=== PATIENT | female | born 1985 | race Caucasian/White ===

== ENCOUNTER 2016-11-09 14:29 | Emergency (ER) | payer OTHER ==
[2016-11-09] MEDS ORDERED: ADACEL/BOOSTRIX VACCINE (DIPHTH/PERTUSS/ACELL/TETANUS)0.5ML SYR (90715) As Ordered ONE (15:47)
--- NOTE | 2016-11-09 16:19 | EDDOCDS ---
Nurse's Notes [facility] Name: Annette Allan Age: 31 yrs Sex: Female : 1985 Arrival Date: 11/09/2016 Time: 14:29 Bed I3 / M3 Private MD: No Pcp Diagnosis: Bitten by dog-Left Wrist Presentation: 11/09 14:31 Presenting complaint: Patient states: Pt presents with c/o dog bite to left wrist dls puncture wound occurred Wednesday pts own dog was seen at urgent care put on amoxicillin pt thinks redness and pain is worse. Adult Sepsis Screening: The patient does not have new or worsening altered mentation. Patient's respiratory rate is less than 22. Systolic blood pressure is greater than 100. Patient has a qSOFA score of 0- Negative Sepsis Screen. Suicide/Homicide risk assessment- the patient denies having any suicidal and/or homicidal ideations and does not present with any other emotional, behavioral or mental health complaints. 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 Transition of care: patient was not received from another setting of care. 14:31 Acuity: JACKLYN Level 5 dls 14:31 Method Of Arrival: Walkin/Carried/Asstd dls Triage Assessment: 14:35 General: Appears in no apparent distress, well nourished, well groomed, Behavior is dls cooperative. Pain: Pain currently is 6 out of 10 on a pain scale. HIV screening NA for this visit Offered previously. 16:17 Bite Description: Bite sustained to left arm by a dog, Animal Information: Vaccine kr3 status: is current. 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 27-0.8 mg Oral tab 1 tab once daily 2. Augmentin 875-125 mg Oral tab 1 tab every 12 hours - PMHx: none; - PSHx: ; - Immunization history:: Last tetanus immunization: unknown. - Family history: Not pertinent. - Social history: Smoking status: Patient uses tobacco products, light tobacco smoker. No barriers to communication noted, The patient speaks fluent Fijian. - : The pt / caregiver states he / she is not on anticoagulants. Home medication list is obtained from the patient. - Exposure Risk Screening:: None identified. Screenin:34 Screening information is obtained from the patient. Fall risk: No risks identified. kr3 Assistance ADL's: requires no assistance with activities of daily living. Abuse/DV Screen: The patient / caregiver reports he/she is: not in a situation that causes fear, pain or injury. Nutritional screening: No deficits noted. Advance Directives: Currently, there is no health care proxy. home support is adequate. Assessment: 15:33 Reassessment: Patient appears in no apparent distress at this time. Pain: Location: kr3 left forearm. Respiratory: Respiratory effort is even, unlabored. Derm: Skin healing wounds to left wrist, redness surrounding wounds which is extending up left forearm. Musculoskeletal: Range of motion intact in all extremities. 16:17 Reassessment: Patient appears in no apparent distress at this time. kr3 Vital Signs: 14:30 BP 116 / 71; Pulse 107; Resp 18 S; Temp 97.6(O); Pulse Ox 98% on R/A; Weight 104.33 kg dd6 (R); Height 5 ft. 3 in. (160.02 cm) (R); 14:30 Body Mass Index 40.74 (104.33 kg, 160.02 cm) dd6 Vitals: 14:30 Log In Time: November 09, 2016 at 14:28. dd6 ED Course: 14:30 Patient visited by Aquilino Desai PCA. dd6 14:30 No Pcp is Private Physician. dd6 14:30 Patient moved to Waiting dd6 14:31 Patient moved to Pre RCE dd6 14:34 Triage Initiated dls 15:12 Elva Barone PA-C is PHCP. ef1 15:12 Ernesto Riojas MD is Attending Physician. ef1 15:16 Patient moved to I3 / M3 ar3 15:19 Patient visited by Elva Barone PA-C. ef1 15:34 The patient / caregiver is instructed regarding the plan of care and ED course. Patient kr3 has correct armband on for positive identification. 15:42 Pt greeted and oriented to ED. Patient advised of names of staff involved in care, jam1 location of call sawyer, wait times and NPO status. Patient has correct armband on for positive identification. Bed in low position. Call light in reach. Side rails up X 1. Door closed. 15:46 Patient visited by Elva Barone PA-C. ef1 16:10 Milton Hayes MD is Referral Physician. ef1 16:12 [facility] Payment Agreement was scanned into [employer] and attached to record. zo 16:17 No IV's were initiated during this patient's visit. No procedures done that require kr3 assistance. 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 Exp: 11/26/2018. Lot #: [id number]. } Route: IM; Site: right deltoid; Order Results: There are currently no results for this order. Outcome: 16:10 Discharge ordered by Provider. ef1 16:17 Discharge Assessment: patient administered narcotics - no. The following High Risk kr3 Discharge criteria are identified: None. Discharged to home ambulatory. Condition: stable. Discharge instructions given to patient, Instructed on discharge instructions, follow up and referral plans. Demonstrated understanding of instructions, Pt was receptive of discharge instructions/ teaching. No special radiology studies were completed. Property sent home with patient. 16:18 Patient left the ED. kr3 Signatures: Lyly Solis, RN RN dls Kanchan Yang, RESTAURANT CREW RESTAURANT CREW jam1 Ade Riggs RN RN kr3 Shakir Rodriguez Daniell, RESTAURANT CREW RESTAURANT CREW dd6 Elva Barone PA-C PA-C ef1 Madelyn Carranza, RESTAURANT CREW RESTAURANT CREW ar3 MTDD
--- NOTE | 2016-11-09 16:19 | EDDOCDS ---
Physician Documentation [facility] Name: Annette Allan Age: 31 yrs Sex: Female : 1985 Arrival Date: 11/09/2016 Time: 14:29 Bed I3 / M3 Private MD: No Pcp Disposition: 11/09/16 16:10 Discharged to Home/Self Care. Impression: Bitten by dog - Left Wrist. - Condition is Stable. - Medication Reconciliation, Local Pharmacy Hours form. - Follow up: Emergency Department; When: Tomorrow; Reason: Recheck today's complaints, Continuance of care. Follow up: Milton Hayes; When: 1 - 2 days; Reason: Recheck today's complaints, Continuance of care. - Problem is new. - Symptoms have improved. Historical: - Allergies: SULFA (SULFONAMIDES) (Unknown); - Home Meds: 1. 27-0.8 mg Oral tab 1 tab once daily 2. Augmentin 875-125 mg Oral tab 1 tab every 12 hours - PMHx: none; - PSHx: ; - Immunization history:: Last tetanus immunization: unknown. - Family history: Not pertinent. - Social history: Smoking status: Patient uses tobacco products, light tobacco smoker. No barriers to communication noted, The patient speaks fluent Mongolian. - : The pt / caregiver states he / she is not on anticoagulants. Home medication list is obtained from the patient. - Exposure Risk Screening:: None identified. 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 3 in. (160.02 cm) (R); 14:30 Body Mass Index 40.74 (104.33 kg, 160.02 cm) dd6 MDM: 15:49 Tetanus- Diptheria-Acellular Pertussis 0.5 ml IM once; Routine booster 10-64yrs, >64 ef1 with child contact [place] [facility] ordered. 15:49 Misc. Nursing Order ordered. ef1 16:07 Financial registration complete. zo 16:12 [facility] Payment Agreement was scanned into [employer] and attached to record. 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 Exp: 11/26/2018. Lot #: [id number]. } Route: IM; Site: right deltoid; Signatures: Lyly Solis, RN RN dls Ade Riggs RN RN kr3 Shakir Rodriguez Erica, PA-C PA-C ef1 The chart was reviewed and I authenticate all verbal orders and agree with the evaluation and treatment provided.Attachments: 16:12 [facility] Payment Agreement zo MTDD
--- NOTE | 2016-11-11 17:18 | EDDOCDS ---
Physician Documentation [facility] Name: Annette Allan Age: 31 yrs Sex: Female : 1985 Arrival Date: 11/09/2016 Time: 14:29 Bed I3 / M3 Private MD: No Pcp Disposition: 11/09/16 16:10 Discharged to Home/Self Care. Impression: Bitten by dog - Left Wrist. - Condition is Stable. - Medication Reconciliation, Local Pharmacy Hours form. - Follow up: Emergency Department; When: Tomorrow; Reason: Recheck today's complaints, Continuance of care. Follow up: Milton Hayes; When: 1 - 2 days; Reason: Recheck today's complaints, Continuance of care. - Problem is new. - Symptoms have improved. Historical: - Allergies: SULFA (SULFONAMIDES) (Unknown); - Home Meds: 1. 27-0.8 mg Oral tab 1 tab once daily 2. Augmentin 875-125 mg Oral tab 1 tab every 12 hours - PMHx: none; - PSHx: ; - Immunization history:: Last tetanus immunization: unknown. - Family history: Not pertinent. - Social history: Smoking status: Patient uses tobacco products, light tobacco smoker. No barriers to communication noted, The patient speaks fluent [place]. - : The pt / caregiver states he / she is not on anticoagulants. Home medication list is obtained from the patient. - Exposure Risk Screening:: None identified. 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 3 in. (160.02 cm) (R); 16:15 BP 100 / 63; Pulse 86; Resp 24; Temp 97.8; Pulse Ox 99% ; jam1 14:30 Body Mass Index 40.74 (104.33 kg, 160.02 cm) dd6 MDM: 15:49 Tetanus- Diptheria-Acellular Pertussis 0.5 ml IM once; Routine booster 10-64yrs, >64 ef1 with child contact [place] [facility] ordered. 15:49 [facility] Nursing Order ordered. ef1 16:07 Financial registration complete. zo 16:12 [facility] Payment Agreement was scanned into [employer] and attached to record. zo 21:39 T-Sheet-- Draft Copy was scanned into [employer] and attached to record. klr Administered Medications: 15:51 Drug: Tetanus- Diptheria-Acellular Pertussis 0.5 ml [diphth,pertussis(acel),tetanus 2.5 kr3 Lf unit-8 mcg-5 Lf/0.5mL IM syringe (0.5 mL)] {Editor Map: [employer]. Exp: 11/26/2018. Lot #: [id number]. } Route: IM; Site: right deltoid; Signatures: Lyly Solis RN RN dls Ade Riggs RN RN kr3 Shakir Rodriguez Erica, JEROMYC PA-Chad ef1 Sima Liu The chart was reviewed and I authenticate all verbal orders and agree with the evaluation and treatment provided.Attachments: 16:12 [facility] Payment Agreement zo 21:39 T-Sheet-- Draft Copy klr Chart Complete MTDD
--- NOTE | 2016-11-11 17:18 | EDDOCDS ---
Nurse's Notes [facility] Name: Annette Allan Age: 31 yrs Sex: Female : 1985 Arrival Date: 11/09/2016 Time: 14:29 Bed I3 / M3 Private MD: No Pcp Diagnosis: Bitten by dog-Left Wrist Presentation: 11/09 14:31 Presenting complaint: Patient states: Pt presents with c/o dog bite to left wrist dls puncture wound occurred Wednesday pts own dog was seen at urgent care put on amoxicillin pt thinks redness and pain is worse. Adult Sepsis Screening: The patient does not have new or worsening altered mentation. Patient's respiratory rate is less than 22. Systolic blood pressure is greater than 100. Patient has a qSOFA score of 0- Negative Sepsis Screen. Suicide/Homicide risk assessment- the patient denies having any suicidal and/or homicidal ideations and does not present with any other emotional, behavioral or mental health complaints. 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 Transition of care: patient was not received from another setting of care. 14:31 Acuity: JACKLYN Level 5 dls 14:31 Method Of Arrival: Walkin/Carried/Asstd dls Triage Assessment: 14:35 General: Appears in no apparent distress, well nourished, well groomed, Behavior is dls cooperative. Pain: Pain currently is 6 out of 10 on a pain scale. HIV screening NA for this visit Offered previously. 16:17 Bite Description: Bite sustained to left arm by a dog, Animal Information: Vaccine kr3 status: is current. 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 27-0.8 mg Oral tab 1 tab once daily 2. Augmentin 875-125 mg Oral tab 1 tab every 12 hours - PMHx: none; - PSHx: ; - Immunization history:: Last tetanus immunization: unknown. - Family history: Not pertinent. - Social history: Smoking status: Patient uses tobacco products, light tobacco smoker. No barriers to communication noted, The patient speaks fluent Bermudian. - : The pt / caregiver states he / she is not on anticoagulants. Home medication list is obtained from the patient. - Exposure Risk Screening:: None identified. Screenin:34 Screening information is obtained from the patient. Fall risk: No risks identified. kr3 Assistance ADL's: requires no assistance with activities of daily living. Abuse/DV Screen: The patient / caregiver reports he/she is: not in a situation that causes fear, pain or injury. Nutritional screening: No deficits noted. Advance Directives: Currently, there is no health care proxy. home support is adequate. Assessment: 15:33 Reassessment: Patient appears in no apparent distress at this time. Pain: Location: kr3 left forearm. Respiratory: Respiratory effort is even, unlabored. Derm: Skin healing wounds to left wrist, redness surrounding wounds which is extending up left forearm. Musculoskeletal: Range of motion intact in all extremities. 16:17 Reassessment: Patient appears in no apparent distress at this time. kr3 Vital Signs: 14:30 BP 116 / 71; Pulse 107; Resp 18 S; Temp 97.6(O); Pulse Ox 98% on R/A; Weight 104.33 kg dd6 (R); Height 5 ft. 3 in. (160.02 cm) (R); 16:15 BP 100 / 63; Pulse 86; Resp 24; Temp 97.8; Pulse Ox 99% ; jam1 14:30 Body Mass Index 40.74 (104.33 kg, 160.02 cm) dd6 Vitals: 14:30 Log In Time: November 09, 2016 at 14:28. dd6 ED Course: 14:30 Patient visited by Aquilino Desai PCA. dd6 14:30 No Pcp is Private Physician. dd6 14:30 Patient moved to Waiting dd6 14:31 Patient moved to Pre RCE dd6 14:34 Triage Initiated dls 15:12 Elva Barone PA-C is PHCP. ef1 15:12 Ernesto Riojas MD is Attending Physician. ef1 15:16 Patient moved to I3 / M3 ar3 15:19 Patient visited by Elva Barone PA-C. ef1 15:34 The patient / caregiver is instructed regarding the plan of care and ED course. Patient kr3 has correct armband on for positive identification. 15:42 Pt greeted and oriented to ED. Patient advised of names of staff involved in care, jam1 location of call sawyer, wait times and NPO status. Patient has correct armband on for positive identification. Bed in low position. Call light in reach. Side rails up X 1. Door closed. 15:46 Patient visited by Elva Barone PA-C. ef1 16:10 Milton Hayes MD is Referral Physician. ef1 16:12 [facility] Payment Agreement was scanned into [email or web address] and attached to record. zo 16:17 No IV's were initiated during this patient's visit. No procedures done that require kr3 assistance. 21:39 T-Sheet-- Draft Copy was scanned into [employer] and attached to record. 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 Exp: 11/26/2018. Lot #: [id number]. } Route: IM; Site: right deltoid; Order Results: There are currently no results for this order. Outcome: 16:10 Discharge ordered by Provider. ef1 16:17 Discharge Assessment: patient administered narcotics - no. The following High Risk kr3 Discharge criteria are identified: None. Discharged to home ambulatory. Condition: stable. Discharge instructions given to patient, Instructed on discharge instructions, follow up and referral plans. Demonstrated understanding of instructions, Pt was receptive of discharge instructions/ teaching. No special radiology studies were completed. Property sent home with patient. 16:18 Patient left the ED. kr3 Signatures: Lyly Solis, RN RN Kanchan Parra, MOLDER FOAM RUBBER MOLDER FOAM RUBBER jam1 Ade Riggs RN RN kr3 Shakir Rodriguez Daniell, MOLDER FOAM RUBBER MOLDER FOAM RUBBER dd6 Elva Barone PA-C PA-C ef1 Madelyn Carranza, MOLDER FOAM RUBBER MOLDER FOAM RUBBER ar3 Sima Liu klr Chart Complete MTDD
--- NOTE | 2016-11-11 17:18 | EDDOCDS ---
Physician Documentation [facility] Name: Annette Allan Age: 31 yrs Sex: Female : 1985 Arrival Date: 11/09/2016 Time: 14:29 Bed I3 / M3 Private MD: No Pcp Disposition: 11/09/16 16:10 Discharged to Home/Self Care. Impression: Bitten by dog - Left Wrist. - Condition is Stable. - Medication Reconciliation, Local Pharmacy Hours form. - Follow up: Emergency Department; When: Tomorrow; Reason: Recheck today's complaints, Continuance of care. Follow up: Milton Hayes; When: 1 - 2 days; Reason: Recheck today's complaints, Continuance of care. - Problem is new. - Symptoms have improved. Historical: - Allergies: SULFA (SULFONAMIDES) (Unknown); - Home Meds: 1. 27-0.8 mg Oral tab 1 tab once daily 2. Augmentin 875-125 mg Oral tab 1 tab every 12 hours - PMHx: none; - PSHx: ; - Immunization history:: Last tetanus immunization: unknown. - Family history: Not pertinent. - Social history: Smoking status: Patient uses tobacco products, light tobacco smoker. No barriers to communication noted, The patient speaks fluent Georgian. - : The pt / caregiver states he / she is not on anticoagulants. Home medication list is obtained from the patient. - Exposure Risk Screening:: None identified. 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 3 in. (160.02 cm) (R); 16:15 BP 100 / 63; Pulse 86; Resp 24; Temp 97.8; Pulse Ox 99% ; jam1 14:30 Body Mass Index 40.74 (104.33 kg, 160.02 cm) dd6 MDM: 15:49 Tetanus- Diptheria-Acellular Pertussis 0.5 ml IM once; Routine booster 10-64yrs, >64 ef1 with child contact Pigeon Omnicell ordered. 15:49 [facility] [place]. ef1 16:07 Financial registration complete. zo 16:12 [facility] Payment Agreement was scanned into [email or web address] and attached to record. zo 21:39 T-Sheet-- Draft Copy was scanned into [email or web address] and attached to record. klr Administered Medications: 15:51 Drug: Tetanus- Diptheria-Acellular Pertussis 0.5 ml [diphth,pertussis(acel),tetanus 2.5 kr3 Lf unit-8 mcg-5 Lf/0.5mL IM syringe (0.5 mL)] {Agents' Records Clerk: [employer]. Exp: 11/26/2018. Lot #: [id number]. } Route: IM; Site: right deltoid; Signatures: Lyly Solis RN RN dls Ade Riggs RN RN kr3 Shakir Rodriguez Erica, JEROMYC PA-Chad ef1 Sima Liu The chart was reviewed and I authenticate all verbal orders and agree with the evaluation and treatment provided.Attachments: 16:12 [facility] Payment Agreement zo 21:39 T-Sheet-- Draft Copy klr Chart Complete MTDD
== END 2016-11-09 16:18 | disposition home or self-care (01) ==
LOC: M ED 14:29
DX: S61.552A Open bite of left wrist, initial encounter (principal); Z72.0 Tobacco use; Z88.2 Allergy status to sulfonamides; Z23 Encounter for immunization; W54.0XXA Bitten by dog, initial encounter; Y92.89 Other specified places as the place of occurrence of the external cause; Y93.89 Activity, other specified; Y99.9 Unspecified external cause status

== ENCOUNTER 2016-11-10 11:36 | Emergency (ER) | payer OTHER ==
--- NOTE | 2016-11-10 13:06 | EDDOCDS ---
Physician Documentation [facility] Name: Annette Allan Age: 31 yrs Sex: Female : 1985 Arrival Date: 11/10/2016 Time: 11:36 Bed I6 Private MD: No Pcp Disposition: 11/10/16 12:39 Discharged to Home/Self Care. Impression: Cellulitis, unspecified - Left wrist, recheck. - Condition is Stable. - Discharge Instructions: Cellulitis. - Referral List Call for Appointment, Medication Reconciliation, Local Pharmacy Hours form. - Follow up: Milton Hayes; When: 1 - 2 days; Reason: Recheck today's complaints, Continuance of care. Follow up: Emergency Department; Reason: Worsening of conditions. Follow up: Hao Mccall; When: Call to arrange an appointment; Reason: Further diagnostic work-up, Recheck today's complaints, Continuance of care. - Problem is new. - Symptoms have improved. Historical: - Allergies: SULFA (SULFONAMIDES) (Unknown); - Home Meds: 1. Augmentin 875-125 mg Oral tab 1 tab every 12 hours 2. 27-0.8 mg Oral tab 1 tab once daily - PMHx: none; - PSHx: ; - Social history: Smoking status: Patient uses tobacco products, current every day smoker. No barriers to communication noted, The patient speaks fluent Estonian, Speaks appropriately for age. - Family history: Not pertinent. - : The pt / caregiver states he / she is not on anticoagulants. Home medication list is obtained from the patient. - Exposure Risk Screening:: None identified. 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 3 in. (160.02 cm) (R); Pain 3/10; 13:01 BP 150 / 76; Pulse 78; Resp 18; Temp 98.1(O); Pulse Ox 97% on R/A; Pain 3/10; kpj 11:38 Body Mass Index 40.74 (104.33 kg, 160.02 cm) gr2 MDM: 12:13 [facility] Payment Agreement was scanned into [employer] and attached to record. jp5 12:13 Financial registration complete. jp5 Signatures: Christine Cade RN RN kpCori Thrasher RN RN srm Feola, Erica, PA-C PA-C ef1 Matt Ely jp5 The chart was reviewed and I authenticate all verbal orders and agree with the evaluation and treatment provided.Attachments: 12:13 [facility] Payment Agreement jp5 MTDD
--- NOTE | 2016-11-10 13:06 | EDDOCDS ---
Nurse's Notes [facility] Name: Annette Allan Age: 31 yrs Sex: Female : 1985 Arrival Date: 11/10/2016 Time: 11:36 Bed I6 / 28 Private MD: No Pcp Diagnosis: Cellulitis, unspecified-Left wrist, recheck Presentation: 11/10 11:45 Presenting complaint: Patient states: recheck for arm cellulitis. seen here yesterday srm for same- definite improvement in redness to left forearm. Adult Sepsis Screening: The patient does not have new or worsening altered mentation. Patient's respiratory rate is less than 22. Systolic blood pressure is greater than 100. Patient has a qSOFA score of 0- Negative Sepsis Screen. Suicide/Homicide risk assessment- the patient denies having any suicidal and/or homicidal ideations and does not present with any other emotional, behavioral or mental health complaints. Status: Patient is not a patient financial services coordinator or dependent. Transition of care: patient was not received from another setting of care. 11:45 Acuity: JACKLYN Level 4 srm 11:45 Method Of Arrival: Walkin/Carried/Asstd srm Triage Assessment: 11:46 General: Appears in no apparent distress, Behavior is appropriate for age, cooperative. srm Pain: Pain currently is 4 out of 10 on a pain scale. HIV screening NA for this visit Offered previously. 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 Augmentin 875-125 mg Oral tab 1 tab every 12 hours 2. 27-0.8 mg Oral tab 1 tab once daily - PMHx: none; - PSHx: ; - Social history: Smoking status: Patient uses tobacco products, current every day smoker. No barriers to communication noted, The patient speaks fluent Citizen Of [place], Speaks appropriately for age. - Family history: Not pertinent. - : The pt / caregiver states he / she is not on anticoagulants. Home medication list is obtained from the patient. - Exposure Risk Screening:: None identified. Screenin:38 Infection Control. gr2 12:16 Screening information is obtained from the patient. Primary language is Citizen Of [place]. Fall jam1 risk: No risks identified. Assistance ADL's: requires no assistance with activities of daily living. Abuse/DV Screen: The patient / caregiver reports he/she is: not in a situation that causes fear, pain or injury. Nutritional screening: No deficits noted. Exposure Risk Screening: None identified. Advance Directives: Currently, there is no health care proxy. There is no active DNR order. There is no living will. There is no Power of Wood Fence Installer. Advance directive information has not previously been placed in an [facility] medical record. Further advance directive information is declined. home support is adequate. Assessment: 13:01 General: Appears in no apparent distress, comfortable, Behavior is appropriate for age, kpj pleasant. Pain: Location: left wrist Pain currently is 3 out of 10 on a pain scale. Quality of pain is described as aching. Neurological: Level of Consciousness is awake, alert. Respiratory: Airway is patent Respiratory effort is even, unlabored. Derm: Skin is pink, warm & dry. scabbed puncture wounds left wrist area without drainage, no redness or swelling noted left forearm .CSM intact left fingers. Vital Signs: 11:38 BP 138 / 69; Pulse 115; Resp 18 S; Temp 98.8(O); Pulse Ox 98% on R/A; Weight 104.33 kg gr2 (R); Height 5 ft. 3 in. (160.02 cm) (R); Pain 3/10; 13:01 BP 150 / 76; Pulse 78; Resp 18; Temp 98.1(O); Pulse Ox 97% on R/A; Pain 3/10; kpj 11:38 Body Mass Index 40.74 (104.33 kg, 160.02 cm) gr2 Vitals: 11:38 Log In Time: November 10, 2016 at 11:38. gr2 ED Course: 11:38 Patient visited by Courtney Santo. gr2 11:38 No Pcp is Private Physician. gr2 11:38 Patient moved to Waiting gr2 11:40 Patient visited by Courtney Santo. gr2 11:40 Patient moved to Pre RCE gr2 11:46 Triage Initiated srm 11:59 Elva Barone PA-C is PHCP. ef1 11:59 Ravi Chester MD is Attending Physician. ef1 11:59 Patient moved to I ef1 12:00 Patient visited by Elva Barone PA-C. ef1 12:13 [facility] Payment Agreement was scanned into [employer] and attached to record. jp5 12:16 Pt greeted and oriented to ED. Patient advised of names of staff involved in care, jam1 location of call sawyer, wait times and NPO status. Patient has correct armband on for positive identification. Bed in low position. Call light in reach. Side rails up X 1. Door closed. 12:33 Patient visited by Elva Barone PA-C. ef1 12:39 Milton Hayes MD is Referral Physician. ef1 13:01 No apparent distress. Resting quietly. [facility] 13:01 The patient / caregiver is instructed regarding the plan of care and ED course. [facility] 13:01 No IV's were initiated during this patient's visit. No procedures done that require kpj assistance. 13:04 Hao Mccall is Referral Physician. ef1 13:04 Referral Physician role handed off by Hao Mccall ef1 Order Results: There are currently no results for this order. Outcome: 12:39 Discharge ordered by Provider. ef1 13:01 Discharge Assessment: Patient awake, alert and oriented x 3. No cognitive and/or kpj functional deficits noted. Patient verbalized understanding of disposition instructions. patient administered narcotics - no. The following High Risk Discharge criteria are identified: None. Discharged to home ambulatory. Condition: stable. Discharge instructions given to patient, Instructed on discharge instructions, follow up and referral plans. medication usage, Use of warm compresses to the affected area, wound care, Demonstrated understanding of instructions, medications, Pt was receptive of discharge instructions/ teaching. No special radiology studies were completed. Property sent home with patient. 13:05 Patient left the ED. [facility] Signatures: Christine Cade RN RN kpj Michelson, Staci, RN Kanchan Myres, SEBAS HVAC SALES ENGINEER jam1 Elva Barone PA-C PA-C ef1 Courtney Santo gr2 Matt Ely jp5 MTDD
--- NOTE | 2016-11-12 14:06 | EDDOCDS ---
Physician Documentation [facility] Name: Annette Allan Age: 31 yrs Sex: Female : 1985 Arrival Date: 11/10/2016 Time: 11:36 Bed I6 Private MD: No Pcp Disposition: 11/10/16 12:39 Discharged to Home/Self Care. Impression: Cellulitis, unspecified - Left wrist, recheck. - Condition is Stable. - Discharge Instructions: Cellulitis. - Referral List Call for Appointment, Medication Reconciliation, Local Pharmacy Hours form. - Follow up: Milton Hayes; When: 1 - 2 days; Reason: Recheck today's complaints, Continuance of care. Follow up: Emergency Department; Reason: Worsening of conditions. Follow up: Hao Mccall; When: Call to arrange an appointment; Reason: Further diagnostic work-up, Recheck today's complaints, Continuance of care. - Problem is new. - Symptoms have improved. Historical: - Allergies: SULFA (SULFONAMIDES) (Unknown); - Home Meds: 1. Augmentin 875-125 mg Oral tab 1 tab every 12 hours 2. 27-0.8 mg Oral tab 1 tab once daily - PMHx: none; - PSHx: ; - Social history: Smoking status: Patient uses tobacco products, current every day smoker. No barriers to communication noted, The patient speaks fluent Mohawk, Speaks appropriately for age. - Family history: Not pertinent. - : The pt / caregiver states he / she is not on anticoagulants. Home medication list is obtained from the patient. - Exposure Risk Screening:: None identified. 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 3 in. (160.02 cm) (R); Pain 3/10; 13:01 BP 150 / 76; Pulse 78; Resp 18; Temp 98.1(O); Pulse Ox 97% on R/A; Pain 3/10; kpj 11:38 Body Mass Index 40.74 (104.33 kg, 160.02 cm) gr2 MDM: 12:13 [facility] Payment Agreement was scanned into [employer] and attached to record. jp5 12:13 Financial registration complete. jp5 15:57 T-Sheet-- Draft Copy was scanned into [employer] and attached to record. klr Signatures: Christine Cade RN RN [facility] Cori Zhang RN RN srm Feola, Erica PA-C PA-C matt1 Matt Ely jp5 Sima Liu klr The chart was reviewed and I authenticate all verbal orders and agree with the evaluation and treatment provided.Attachments: 12:13 [facility] Payment Agreement jp5 15:57 T-Sheet-- Draft Copy klr Chart Complete MTDD
--- NOTE | 2016-11-12 14:06 | EDDOCDS ---
Physician Documentation [facility] Name: Annette Allan Age: 31 yrs Sex: Female : 1985 Arrival Date: 11/10/2016 Time: 11:36 Bed I6 Private MD: No Pcp Disposition: 11/10/16 12:39 Discharged to Home/Self Care. Impression: Cellulitis, unspecified - Left wrist, recheck. - Condition is Stable. - Discharge Instructions: Cellulitis. - Referral List Call for Appointment, Medication Reconciliation, Local Pharmacy Hours form. - Follow up: Milton Hayes; When: 1 - 2 days; Reason: Recheck today's complaints, Continuance of care. Follow up: Emergency Department; Reason: Worsening of conditions. Follow up: Hao Mccall; When: Call to arrange an appointment; Reason: Further diagnostic work-up, Recheck today's complaints, Continuance of care. - Problem is new. - Symptoms have improved. Historical: - Allergies: SULFA (SULFONAMIDES) (Unknown); - Home Meds: 1. Augmentin 875-125 mg Oral tab 1 tab every 12 hours 2. 27-0.8 mg Oral tab 1 tab once daily - PMHx: none; - PSHx: ; - Social history: Smoking status: Patient uses tobacco products, current every day smoker. No barriers to communication noted, The patient speaks fluent Welsh, Speaks appropriately for age. - Family history: Not pertinent. - : The pt / caregiver states he / she is not on anticoagulants. Home medication list is obtained from the patient. - Exposure Risk Screening:: None identified. 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 3 in. (160.02 cm) (R); Pain 3/10; 13:01 BP 150 / 76; Pulse 78; Resp 18; Temp 98.1(O); Pulse Ox 97% on R/A; Pain 3/10; kpj 11:38 Body Mass Index 40.74 (104.33 kg, 160.02 cm) gr2 MDM: 12:13 [facility] Payment Agreement was scanned into [employer] and attached to record. jp5 12:13 Financial registration complete. jp5 15:57 T-Sheet-- Draft Copy was scanned into [employer] and attached to record. klr Signatures: Christine Cade RN RN [facility] Cori Zhang RN RN srm Feola, Erica PA-C PA-C matt1 Matt Ely jp5 Sima Liu klr The chart was reviewed and I authenticate all verbal orders and agree with the evaluation and treatment provided.Attachments: 12:13 [facility] Payment Agreement jp5 15:57 T-Sheet-- Draft Copy klr Chart Complete MTDD
--- NOTE | 2016-11-12 14:06 | EDDOCDS ---
Nurse's Notes [facility] Name: Annette Allan Age: 31 yrs Sex: Female : 1985 Arrival Date: 11/10/2016 Time: 11:36 Bed I6 / 28 Private MD: No Pcp Diagnosis: Cellulitis, unspecified-Left wrist, recheck Presentation: 11/10 11:45 Presenting complaint: Patient states: recheck for arm cellulitis. seen here yesterday srm for same- definite improvement in redness to left forearm. Adult Sepsis Screening: The patient does not have new or worsening altered mentation. Patient's respiratory rate is less than 22. Systolic blood pressure is greater than 100. Patient has a qSOFA score of 0- Negative Sepsis Screen. Suicide/Homicide risk assessment- the patient denies having any suicidal and/or homicidal ideations and does not present with any other emotional, behavioral or mental health complaints. Status: Patient is not a academic services professional or dependent. Transition of care: patient was not received from another setting of care. 11:45 Acuity: JACKLYN Level 4 srm 11:45 Method Of Arrival: Walkin/Carried/Asstd srm Triage Assessment: 11:46 General: Appears in no apparent distress, Behavior is appropriate for age, cooperative. srm Pain: Pain currently is 4 out of 10 on a pain scale. HIV screening NA for this visit Offered previously. 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 Augmentin 875-125 mg Oral tab 1 tab every 12 hours 2. 27-0.8 mg Oral tab 1 tab once daily - PMHx: none; - PSHx: ; - Social history: Smoking status: Patient uses tobacco products, current every day smoker. No barriers to communication noted, The patient speaks fluent Cymraes, Speaks appropriately for age. - Family history: Not pertinent. - : The pt / caregiver states he / she is not on anticoagulants. Home medication list is obtained from the patient. - Exposure Risk Screening:: None identified. Screenin:38 Infection Control. gr2 12:16 Screening information is obtained from the patient. Primary language is Cymraes. Fall jam1 risk: No risks identified. Assistance ADL's: requires no assistance with activities of daily living. Abuse/DV Screen: The patient / caregiver reports he/she is: not in a situation that causes fear, pain or injury. Nutritional screening: No deficits noted. Exposure Risk Screening: None identified. Advance Directives: Currently, there is no health care proxy. There is no active DNR order. There is no living will. There is no Power of Primary Grade Teacher. Advance directive information has not previously been placed in an [facility] medical record. Further advance directive information is declined. home support is adequate. Assessment: 13:01 General: Appears in no apparent distress, comfortable, Behavior is appropriate for age, kpj pleasant. Pain: Location: left wrist Pain currently is 3 out of 10 on a pain scale. Quality of pain is described as aching. Neurological: Level of Consciousness is awake, alert. Respiratory: Airway is patent Respiratory effort is even, unlabored. Derm: Skin is pink, warm & dry. scabbed puncture wounds left wrist area without drainage, no redness or swelling noted left forearm .CSM intact left fingers. Vital Signs: 11:38 BP 138 / 69; Pulse 115; Resp 18 S; Temp 98.8(O); Pulse Ox 98% on R/A; Weight 104.33 kg gr2 (R); Height 5 ft. 3 in. (160.02 cm) (R); Pain 3/10; 13:01 BP 150 / 76; Pulse 78; Resp 18; Temp 98.1(O); Pulse Ox 97% on R/A; Pain 3/10; kpj 11:38 Body Mass Index 40.74 (104.33 kg, 160.02 cm) gr2 Vitals: 11:38 Log In Time: November 10, 2016 at 11:38. gr2 ED Course: 11:38 Patient visited by Courtney Santo. gr2 11:38 No Pcp is Private Physician. gr2 11:38 Patient moved to Waiting gr2 11:40 Patient visited by Courtney Santo. gr2 11:40 Patient moved to Pre RCE gr2 11:46 Triage Initiated srm 11:59 Elva Barone PA-C is PHCP. ef1 11:59 Ravi Chester MD is Attending Physician. ef1 11:59 Patient moved to I ef1 12:00 Patient visited by Elva Barone PA-C. ef1 12:13 [facility] Payment Agreement was scanned into [employer] and attached to record. jp5 12:16 Pt greeted and oriented to ED. Patient advised of names of staff involved in care, jam1 location of call sawyer, wait times and NPO status. Patient has correct armband on for positive identification. Bed in low position. Call light in reach. Side rails up X 1. Door closed. 12:33 Patient visited by Elva Barone PA-C. ef1 12:39 Milton Hayes MD is Referral Physician. ef1 13:01 No apparent distress. Resting quietly. [facility] 13:01 The patient / caregiver is instructed regarding the plan of care and ED course. [facility] 13:01 No IV's were initiated during this patient's visit. No procedures done that require kpj assistance. 13:04 Hao Mccall is Referral Physician. ef1 13:04 Referral Physician role handed off by Hao Mccall ef1 15:57 T-Sheet-- Draft Copy was scanned into [employer] and attached to record. klr Order Results: There are currently no results for this order. Outcome: 12:39 Discharge ordered by Provider. ef1 13:01 Discharge Assessment: Patient awake, alert and oriented x 3. No cognitive and/or kpj functional deficits noted. Patient verbalized understanding of disposition instructions. patient administered narcotics - no. The following High Risk Discharge criteria are identified: None. Discharged to home ambulatory. Condition: stable. Discharge instructions given to patient, Instructed on discharge instructions, follow up and referral plans. medication usage, Use of warm compresses to the affected area, wound care, Demonstrated understanding of instructions, medications, Pt was receptive of discharge instructions/ teaching. No special radiology studies were completed. Property sent home with patient. 13:05 Patient left the ED. [facility] Signatures: Christine Cade, AUGUSTINA RN Cori Funes, Kanchan Myers RN, SEBAS DIRECTOR SUPPLY jam1 Elva Barone PA-C PA-C ef1 Courtney Santo gr2 Matt Ely jp5 Sima Liu Chart Complete MTDD
== END 2016-11-10 13:05 | disposition home or self-care (01) ==
LOC: M ED 11:36
DX: O9A.213 Injury, poisoning and certain other consequences of external causes complicating pregnancy, third trimester (principal); S51.852D Open bite of left forearm, subsequent encounter; W54.0XXD Bitten by dog, subsequent encounter; O99.333 Smoking (tobacco) complicating pregnancy, third trimester; Z88.2 Allergy status to sulfonamides; Z79.899 Other long term (current) drug therapy; Z3A.33 33 weeks gestation of pregnancy; Y92.89 Other specified places as the place of occurrence of the external cause; Y93.89 Activity, other specified; Y99.8 Other external cause status

== ENCOUNTER → 2016-11-19 | Outpatient (REF) | payer OTHER | END | disposition home or self-care (01) | LOC: M LAB REF 16:39 | PROVIDERS: ATTEND Obstetrics & Gynecology | DX: Z34.83 Encounter for supervision of other normal pregnancy, third trimester (principal); Z36 Encounter for antenatal screening of mother; Z3A.00 Weeks of gestation of pregnancy not specified ==

== ENCOUNTER → 2016-12-10 | Outpatient (REF) | payer OTHER | LOC: M LAB REF 16:33 | PROVIDERS: ATTEND Advanced Practice Midwife | DX: R03.0 Elevated blood-pressure reading, without diagnosis of hypertension (principal) ==

== ENCOUNTER 2016-12-18 07:30 | Inpatient (IN) | payer OTHER ==
[~2016-12-18] VITALS: Ht 157.5 cm; Wt 108.0 kg
[~2016-12-18 07:30] MED LIST: PRENTAB55 PO
[2016-12-23] VITALS (9 sets, daily range): BP systolic 114–133; BP diastolic 68–79
[2016-12-23] MEDS ORDERED: LR 800 ML IV ONE (06:15)
[2016-12-23] MEDS ORDERED: BICITRA 30ML SOLN UDC PO ONE (06:15)
[2016-12-23] MEDS ORDERED: LR 1,000 ML IV SCH ×2 (06:15→09:30)
[2016-12-23 06:33] LABS: MEAN CORPUSCULAR HEMOGLOBIN 31.8 pg (27.0-33.0); MEAN CORPUSCULAR HGB CONC 34.2 g/dl (32.0-36.5); MEAN CORPUSCULAR VOLUME 92.9 fl (80.0-96.0); RED CELL DISTRIBUTION WIDTH 12.6 % (11.5-14.5); WHITE BLOOD COUNT 11.9 K/mm3 (4.0-10.0)
[2016-12-23] MEDS ORDERED: NALBUPHINE HCL 10 MG/ML AMP (J2300) IV PRN (08:05)
[2016-12-23] MEDS ORDERED: NALOXONE INJ 0.4 MG/1 ML VIAL (J2310) IV PRN ×2 (08:05)
[2016-12-23] MEDS ORDERED: ONDANSETRON 4MG/2ML VIAL (J2405) IV PRN ×3 (08:05→09:30)
[2016-12-23] MEDS ORDERED: METOCLOPRAMIDE INJ 10MG/2ML VIAL (J2765) IV PRN (08:05)
[2016-12-23 08:38] LABS: CORD GAS ABE A -1.5; CORD GAS HCO3 A 25.4 MEQ/L; CORD GAS O2 SAT A 29.8 %; CORD GAS PCO2 A 50.7 mmHg; CORD GAS PH A 7.318 UNITS; CORD GAS PO2 A 17.7 mmHg; CORD GAS SBC A 21.4 MEQ/L
[2016-12-23 08:41] LABS: CORD GAS ABE V -3.9; CORD GAS HCO3 V 20.8 MEQ/L; CORD GAS O2 SAT V 65.4 %; CORD GAS PH V 7.367 UNITS; CORD GAS PO2 V 29.8 mmHg; CORD GAS SBC V 20.5 MEQ/L; CORD GAS TCO2 V 21.9 MEQ/L
[2016-12-23] MEDS ORDERED: PHENYLephrine HCL 500 MCG/5 ML (100MCG/ML) SYRINGE (J2370) As Ordered ONE (08:48)
[2016-12-23] MEDS ORDERED: OXYTOCIN INJ 10 UNITS/ML VIAL (J2590) As Ordered ONE (08:48)
[2016-12-23] MEDS ORDERED: KETOROLAC 60 MG/2 ML VIAL (J1885) As Ordered ONE (08:48)
[2016-12-23] MEDS ORDERED: fentaNYL 100 MCG/2 ML INJECTION (J3010) As Ordered ONE (08:48)
[2016-12-23] MEDS ORDERED: ePHEDrine SULFATE 25 MG/5 ML(5MG/ML) SYRINGE As Ordered ONE (08:48)
[2016-12-23] MEDS ORDERED: MORPHINE PRES-FREE INJ 10 MG/10 ML VIAL (J2274) As Ordered ONE (08:48)
[2016-12-23] MEDS ORDERED: ONDANSETRON 4MG/2ML VIAL (J2405) As Ordered ONE (08:49)
[2016-12-23] MEDS: DOCUSATE SODIUM 100 MG CAP PO SCH ×2 (09:00→22:13)
[2016-12-23] MEDS ORDERED: MEPERIDINE INJ 25 MG/ML VIAL (J2175) As Ordered ONE (09:27)
[2016-12-23] MEDS: LR 1,000 ML IV SCH ×2 (09:27→17:27)
[2016-12-23] MEDS ORDERED: RHOGAM 300 MCG (1500 IU) INJ (J2790) IM SCH (09:30)
[2016-12-23] MEDS ORDERED: MOM 30ML SUSPENSION UDC PO PRN (09:30)
[2016-12-23] MEDS ORDERED: MEPERIDINE INJ 25 MG/ML VIAL (J2175) IV PRN (09:30)
[2016-12-23] MEDS ORDERED: PERCOCET 5MG/325MG TAB PO PRN (09:30)
[2016-12-23] MEDS ORDERED: NORCO, ANEXSIA 5/325MG TABLET (HYDROcodone/ACETAMINOPHEN) PO PRN (09:30)
[2016-12-23] MEDS ORDERED: MEASLES,MUMPS,RUBELLA VACCINE INJ (MMR-II) (90707) SC SCH (09:30)
[2016-12-23] MEDS ORDERED: fentaNYL 100 MCG/2 ML INJECTION (J3010) IV PRN (09:30)
--- NOTE | 2016-12-23 13:12 | HPE ---
DATE OF ADMISSION: 12/23/2016 Annette is a 31-year-old female, 2-0-1-2, with a history of two prior section, who is being admitted for elective repeat section. Upon admission, no bleeding, no leakage of fluid, good movement. Her record reviewed, essentially unremarkable. lab: Blood type is A+, rubella immune. Hepatitis negative. HIV negative. GC, chlamydia negative. 1-hour sugar testing was within normal limits. Her GBS is negative. She does have a history of abnormal Pap smear for which she had a colposcopy. MEDICAL HISTORY: Denies. PAST SURGICAL HISTORY: section times two. SOCIAL HISTORY: She is . She is a current smoker. Denies any alcohol or drug use. REVIEW OF SYSTEMS: Unremarkable. MEDICATIONS: - vitamins ALLERGIES: To SULFA DRUGS. PHYSICAL EXAMINATION: Normal-appearing female, in no acute distress. Abdomen: Soft, nontender, nondistended. Extremities: No clubbing, cyanosis or edema. Vaginal exam deferred. ASSESSMENT: Intrauterine at 39+ weeks gestation being admitted for elective repeat section. PLAN: Admit to labor and delivery. Awaiting operating room (OR) for repeat section.
[2016-12-23] MEDS: NICOTINE 7 MG/24 HR TRANSDERMAL TD SCH (15:18)
[2016-12-23] MEDS: IBUPROFEN 800 MG TAB PO SCH (17:53)
[2016-12-24] MEDS: IBUPROFEN 800 MG TAB PO SCH ×3 (00:47→16:47)
[2016-12-24] MEDS: LR 1,000 ML IV SCH ×3 (01:27→17:27)
[2016-12-24 01:59] VITALS: BP 113/58
[2016-12-24] MEDS: NORCO, ANEXSIA 5/325MG TABLET (HYDROcodone/ACETAMINOPHEN) PO PRN ×4 (03:56→21:10)
[2016-12-24 06:12] VITALS: BP 116/65
--- NOTE | 2016-12-24 06:36 | RO ---
DATE OF PROCEDURE: 12/23/2016 PREOPERATIVE DIAGNOSIS: Term for elective repeat section times three. POSTOPERATIVE DIAGNOSIS: Term for elective repeat section PROCEDURE: 1. Repeat section. 2. Revision of old scar. SURGEON: Milton Hayes DO POACHER WRINGER OPERATOR: GOLD Granados ANESTHESIA: Spinal. Annette is a 31-year-old female, 4, para 2-0-1-2, with a history of two prior section, who is being admitted for elective repeat section. COMPLICATION: None. ESTIMATED BLOOD LOSS: 500 mL. FINDING: Live male in occiput transverse position. 8/9. weight 5 pounds 7 ounces. Placenta delivered manually. DESCRIPTION OF PROCEDURE: After obtaining informed consent, patient was taken to the operating room where spinal anesthetic was found to be adequate. She was then draped and prepped in usual sterile fashion in the supine position. At this point, a elliptical incision was made over the old scar. The scar was removed. The incision was then carried down to the fascia. Fascia was incised in midline fashion and carried through laterally. Superior aspect of the fascia was then grabbed with Refugio clamp and tented off and dissected off the rectus muscle sharply. The inferior aspect was dissected off in a similar fashion. Rectus muscles midline fashion. Perineum identified. Peritoneal cavity entered bluntly. Superior and inferior dissection was then done with good visualization of the bladder. At this point, a Mobius skin retractor was placed. A low-transverse uterine incision was made. was delivered in atraumatic fashion. Nose and mouth bulb suctioned. Cord doubly clamped and cut, and infant was handed over to awaiting warmer. Cord blood and cord gas was sent. Placenta removed manually. Uterus cleared of all clot and debris, and the uterine incision was then repaired in two separate layers of #0 Vicryl sutures. All superficial bleeders were coagulated. Pelvis copiously irrigated with normal saline and suctioned out. Attention turned to the peritoneum, which was closed using #2-0 Vicryl in a running fashion. Attention was turned to the fascia, which was closed in two separate segment of #0 Vicryl sutures. All superficial bleeders were coagulated and skin was reapproximated in subcuticular fashion using #3-0 Vicryl on a Aaron. Steri- Strip placed. Patient tolerated procedure well. She was then transferred to recovery room in stable condition. [facility]
[2016-12-24 08:05] LABS: MEAN CORPUSCULAR HEMOGLOBIN 31.9 pg (27.0-33.0); MEAN CORPUSCULAR HGB CONC 33.9 g/dl (32.0-36.5); MEAN CORPUSCULAR VOLUME 94.1 fl (80.0-96.0); RED CELL DISTRIBUTION WIDTH 12.8 % (11.5-14.5)
[2016-12-24] MEDS: PRENATAL VITAMIN TAB PO SCH (08:28)
[2016-12-24] MEDS: DOCUSATE SODIUM 100 MG CAP PO SCH ×2 (08:28→21:09)
--- NOTE | 2016-12-24 08:54 | IPNPDOC ---
Obstetrical Progress Note Date of Service The patient was seen on 12/24/16 at 08:50. Progress Note SUBJECTIVE: Patient reports she is doing well. Voiding without difficulty. Ambulating without difficulty. OBJECTIVE: PHYSICAL EXAMINATION: VITAL SIGNS: Please see below. CARDIOVASCULAR: Regular rate and rhythm, no murmur, rubs or gallops. LUNGS: Bilateral wheezing noted on auscultation. BREAST EXAMINATION: Mass/no engorgement/+ or - erythema/non-tender/tender FUNDUS: Firm at U, nontender to massage. SECTION INCISION: Dressing removed. Edges approximated with a scant amount of bloody drainage. Steri-Strips still in place.. EXTREMITIES: Bilateral lower extremities, no edema, no erythema. Sequential Compression Devices on bilateral lower extremities. CURRENT LABS: Please see below. ASSESSMENT: Day 1 postoperative PLAN: Continue supportive nursing care. Nasal MRSA swab ordered due to patient' s VIP status. Patient is to continue using incentive spirometer. Patient is to continue using nicotine patch. Patient is to do a nasal swab weekly for the next 2 weeks after this culture. PFS to see patient due to potential Down syndrome of . Education done with patient on incisional care. VS, I&O, 24H, Fishbone Vital Signs/I&O Vital Signs Date Time Temp Pulse Resp B/P Pulse Ox O2 Delivery O2 Flow Rate FiO2 12/24/16 08:29 18 12/24/16 06:12 96.9 79 116/65 98 12/23/16 11:30 Room Air I&O- Last 24 Hours up to 6 AM 12/24/16 06:00 Intake Total 813 ml Output Total 2200 ml Balance -1387 ml Laboratory Data CBC/BMP Laboratory Tests 12/24/16 07:32 Red Blood Count 3.64 L, Mean Corpuscular Volume 94.1, Mean Corpuscular Hemoglobin 31.9, Mean Corpuscular Hemoglobin Concent 33.9, Red Cell Distribution Width 12.8 HARRIETT ADLER CNM Dec 24, 2016 08:54
[2016-12-24] MEDS: NICOTINE 7 MG/24 HR TRANSDERMAL TD SCH (10:27)
[2016-12-24 10:30] VITALS: BP 122/80
[2016-12-24 14:04] VITALS: BP 118/76
[2016-12-24] MEDS ORDERED: ALBUTEROL 90 MCG/ACT 8GM HFA INHALER INH PRN (16:45)
[2016-12-24 18:39] VITALS: BP 152/83
[2016-12-24 22:03] VITALS: BP 134/79
[2016-12-25] MEDS: IBUPROFEN 800 MG TAB PO SCH ×2 (00:59→08:37)
[2016-12-25] MEDS: LR 1,000 ML IV SCH (01:27)
[2016-12-25] MEDS: NORCO, ANEXSIA 5/325MG TABLET (HYDROcodone/ACETAMINOPHEN) PO PRN ×2 (03:50→08:36)
[2016-12-25 06:13] VITALS: BP 131/80
[2016-12-25] MEDS: NICOTINE 7 MG/24 HR TRANSDERMAL TD SCH (08:35)
[2016-12-25] MEDS: PRENATAL VITAMIN TAB PO SCH (08:35)
[2016-12-25] MEDS: DOCUSATE SODIUM 100 MG CAP PO SCH (08:36)
[2016-12-25 08:47] VITALS: BP 131/80
[2016-12-25] MEDS ORDERED: ADACEL/BOOSTRIX VACCINE (DIPHTH/PERTUSS/ACELL/TETANUS)0.5ML SYR (90715) IM ONE (09:00)
[2016-12-25] MEDS ORDERED: IBUP-1114 PO (10:45)
[2016-12-25] MEDS ORDERED: ALBU17IN2 INH (10:45)
[2016-12-25] MEDS ORDERED: COLA100C PO (10:45)
--- NOTE | 2016-12-28 09:44 | DS.PDOC ---
Discharge Summary General Date of Admission Dec 23, 2016 at 05:47 Date of Discharge Dec 25, 2016 at 13:30 Attending Physician: Milton Hayes DO Discharge Summary ADMITTING DIAGNOSES: 1. Elective repeat section. 2. 40 weeks gestation. DISCHARGE DIAGNOSES: 1. Low transverse repeat section. 2. Day 2 postoperative. COMPLICATIONS/CHIEF COMPLAINT: Previous Section. HISTORY OF PRESENT ILLNESS: Patient is a 31-year-old female who is a G3 for P3013 who is 40 weeks gestation. She had an elective repeat low transverse section on 12/23/16 at 08:28. She delivered a live female who we have 5 lbs. 7 oz., 2458 g she is breast-feeding. The is thought to potentially have Down syndrome. The intertype operator and the patient has decided to run chromosomal testing. Patient is a smoker. 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 Patient has not tested positive for MRSA or the VSRE due to our knowledge after looking through all of the labs. HOSPITAL COURSE: Uncomplicated. DISCHARGE MEDICATIONS: Percocet and Colace sent to pharmacy. Patient can take OTC Motrin and Tylenol as directed. ALLERGIES: Please see below. PHYSICAL EXAMINATION ON DISCHARGE: VITAL SIGNS: Please see below. ABDOMINAL EXAMINATION: Fundus firm 1 below umbilicus. Low transverse incision is approximated with no drainage. Steri-Strips still present. : Lochia scant bright red. EXTREMITIES: Bilateral lower extremities have generalized edema. SKIN: Warm and dry. No rashes. NEUROLOGICAL EXAMINATION: And O 3. ACTIVITY: As tolerated. DIET: Regular. DISCHARGE INSTRUCTIONS: 1. Patient is to follow-up in the office in 2 weeks for incision check and 6 weeks . 2. Education was done on mastitis, endometritis, infection at the incision site , hemorrhage, DVT, pulmonary embolism, pelvic rest, and pain management. 3. A prescription for Percocet and Colace was sent to patient's preferred pharmacy. DISCHARGE CONDITION: Stable. Vital Signs/I&Os Vital Signs Date Time Temp Pulse Resp B/P Pulse Ox O2 Delivery O2 Flow Rate FiO2 12/25/16 09:17 20 12/25/16 08:47 102 131/80 98 12/25/16 06:13 97.7 12/23/16 11:30 Room Air Discharge Medications Scheduled Docusate Sodium (Colace) 100 Mg Cap 100 MG PO BID (Reported) Multivitamins/ ( 19) 1 Tab Tab 1 TAB PO DAILY (Reported) Scheduled PRN Albuterol Sulfate (Proventil Hfa) 167 Puff/6.7 Gm Aers 2 PUFFS INH Q6HP PRN PRN SOB/WHEEZING (Reported) Ibuprofen (Ibuprofen) 400 Mg Tab 800 MG PO Q8HP PRN PRN PAIN (Reported) Allergies Coded Allergies: Sulfa Drugs (Verified Allergy, Intermediate, HIVES, 12/15/16) Sulfa Drugs Cross Reactors (Verified Allergy, Intermediate, HIVES, 12/15/16) HARRIETT ADLER CNM Dec 28, 2016 09:44
== END 2016-12-25 13:30 | disposition home health service (06) | DRG 540 ==
LOC: M LDI 12-23 05:47 → M OBS 12-23 11:25
PROVIDERS: ADMIT Obstetrics & Gynecology; ATTEND Obstetrics & Gynecology
PROC: 0HB7XZZ Excision of Abdomen Skin, External Approach (ICD-10-PCS; 2016-12-23)
PROC: 10D00Z1 Extraction of Products of Conception, Low, Open Approach (ICD-10-PCS; principal; 2016-12-23 07:30)
DX: O34.211 Maternal care for low transverse scar from previous cesarean delivery (principal); F17.210 Nicotine dependence, cigarettes, uncomplicated; O99.334 Smoking (tobacco) complicating childbirth; Z3A.39 39 weeks gestation of pregnancy; Z37.0 Single live birth

== ENCOUNTER → 2016-12-22 | Outpatient (REF) | payer OTHER ==
[~2016-12-22] MED LIST changes: +ALBU17IN2 INH; +COLA100C PO; +IBUP-1114 PO
== END ==
LOC: M LAB REF 14:55
PROVIDERS: ATTEND Advanced Practice Midwife
DX: Z11.3 Encounter for screening for infections with a predominantly sexual mode of transmission (principal)

== ENCOUNTER → 2017-01-21 | Outpatient (REF) | payer OTHER ==
[~2017-01-21] MED LIST changes: -COLA100C PO; +COLA100C3 PO
== END ==
LOC: M LAB REF 13:50
PROVIDERS: ATTEND Obstetrics & Gynecology
DX: L66.2 Folliculitis decalvans (principal)

== ENCOUNTER → 2017-06-15 | Outpatient (REF) | payer OTHER ==
[~2017-06-15] MED LIST changes: -COLA100C3 PO; +COLA100C5 PO
[2017-06-15 17:42] LABS: MEAN CORPUSCULAR HEMOGLOBIN 32.6 pg (27.0-33.0); MEAN CORPUSCULAR VOLUME 93.1 fl (80.0-96.0); RED CELL DISTRIBUTION WIDTH 11.8 % (11.5-14.5); WHITE BLOOD COUNT 8.4 K/mm3 (4.0-10.0)
[2017-06-15 19:13] LABS: ALBUMIN 3.9 GM/DL (3.2-5.2); ALBUMIN/GLOBULIN RATIO 1.34 (1.00-1.93); ALKALINE PHOSPHATASE 51 U/L (45-117); ALT/SGPT 16 U/L (12-78); ANION GAP 9 MEQ/L (8-16); AST/SGOT 7 U/L (15-37); BILIRUBIN,TOTAL 0.4 MG/DL (0.2-1.0); BLOOD UREA NITROGEN 8 MG/DL (7-18); CALCIUM LEVEL 8.9 MG/DL (8.5-10.1); CARBON DIOXIDE LEVEL 23 MEQ/L (21-32); CHLORIDE LEVEL 106 MEQ/L (98-107); CHOLESTEROL LEVEL 94 MG/DL (<200); CREATININE FOR GFR 0.71 MG/DL (0.55-1.02); GLOMERULAR FILTRATION RATE > 60.0 (>60); GLUCOSE, FASTING 60 MG/DL (70-105); POTASSIUM SERUM 4.4 MEQ/L (3.5-5.1); SODIUM LEVEL 138 MEQ/L (136-145); TOTAL PROTEIN 6.8 GM/DL (6.4-8.2); TRIGLYCERIDES LEVEL 56 MG/DL (<150)
== END ==
LOC: M LAB REF 16:29
PROVIDERS: ATTEND Advanced Practice Midwife
DX: Z01.419 Encounter for gynecological examination (general) (routine) without abnormal findings (principal)

== ENCOUNTER → 2017-09-11 | Outpatient (REF) | payer OTHER | LOC: M LAB REF 18:00 | PROVIDERS: ATTEND Physician Assistant Surgical | DX: J02.9 Acute pharyngitis, unspecified (principal) ==

== ENCOUNTER 2018-06-18 11:14 | Emergency (ER) | payer OTHER ==
[2018-06-18 12:23] LABS: BASO % 0.4 % (0.0-1.0); EOS % 0.1 % (0.0-3.0); HEMATOCRIT 42.8 % (36.0-47.0); HEMOGLOBIN 14.6 g/dl (12.0-15.5); IMMATURE GRANULOCYTE % 0.2 % (0-3.0); LYMPH % 10.9 % (24.0-44.0); MEAN CORPUSCULAR HEMOGLOBIN 32.9 pg (27.0-33.0); MEAN CORPUSCULAR HGB CONC 34.1 g/dl (32.0-36.5); MEAN CORPUSCULAR VOLUME 96.4 fl (80.0-96.0); MONO # 0.4 10^3/uL (0.0-0.8); MONO % 4.6 % (0.0-5.0); NEUTROPHILS # 7.9 10^3/uL (1.8-7.7); NEUTROPHILS % 83.8 % (36.0-66.0); PLATELET COUNT, AUTOMATED 340 10^3/uL (150-450); RED BLOOD COUNT 4.44 10^6/uL (4.00-5.40); WHITE BLOOD COUNT 9.4 10^3/uL (4.0-10.0)
[2018-06-18 12:43] LABS: CONTROL LINE HCG INT CTR LINE PRESENT; HCG, SERUM QUALITATIVE NEGATIVE (NEGATIVE)
[2018-06-18 12:47] LABS: ANION GAP 6 MEQ/L (8-16); BLOOD UREA NITROGEN 11 MG/DL (7-18); CALCIUM LEVEL 9.5 MG/DL (8.5-10.1); CARBON DIOXIDE LEVEL 26 MEQ/L (21-32); CHLORIDE LEVEL 107 MEQ/L (98-107); CPK CREATINE PHOSPHOKINASE 466 U/L (26-192); CREATININE FOR GFR 0.96 MG/DL (0.55-1.30); GLOMERULAR FILTRATION RATE > 60.0 (>60); GLUCOSE, FASTING 98 MG/DL (70-100); MB/CK RELATIVE INDEX 0.64 (< OR =4); POTASSIUM SERUM 3.9 MEQ/L (3.5-5.1); SODIUM LEVEL 139 MEQ/L (136-145); TROPONIN I < 0.02 NG/ML (< 0.10)
[2018-06-18] MEDS ORDERED: ISOVUE-370 76% 100ML VIAL (Q9967) As Ordered (13:11)
== END 2018-06-18 14:24 | disposition home or self-care (01) ==
LOC: M ED 11:14
DX: J45.901 Unspecified asthma with (acute) exacerbation (principal); F41.9 Anxiety disorder, unspecified; Z88.2 Allergy status to sulfonamides; F17.210 Nicotine dependence, cigarettes, uncomplicated
CPT/HCPCS: Q9967

== ENCOUNTER 2021-02-18 09:51 | Emergency (ER) | payer OTHER ==
[~2021-02-18] VITALS: Ht 162.6 cm; Wt 96.9 kg
[2021-02-18 09:51] VITALS: BP 134/75
[~2021-02-18 09:51] MED LIST changes: +CETI10TA; +MUCI600T37 PO; +VENTAER
[2021-02-18 11:33] LABS: RSV AMPLIFICATION NEGATIVE (NEGATIVE)
== END 2021-02-18 11:33 | disposition home or self-care (01) ==
LOC: M ED 09:51
DX: Z20.828 Contact with and (suspected) exposure to other viral communicable diseases (principal); R51.9 Headache, unspecified; R09.82 Postnasal drip; F17.200 Nicotine dependence, unspecified, uncomplicated; Z88.1 Allergy status to other antibiotic agents; Z88.2 Allergy status to sulfonamides

== ENCOUNTER 2021-04-22 22:14 | Emergency (ER) | payer OTHER ==
[~2021-04-22] VITALS: Ht 162.6 cm; Wt 99.2 kg
[2021-04-22 22:16] VITALS: BP 160/92
== END 2021-04-22 22:30 | disposition left against medical advice (07) ==
LOC: M ED 22:14
DX: Z53.21 Procedure and treatment not carried out due to patient leaving prior to being seen by health care provider (principal)

== ENCOUNTER 2021-07-28 10:56 | Emergency (ER) | payer MEDICAID, OTHER ==
[~2021-07-28] VITALS: Ht 160 cm; Wt 100.1 kg
[2021-07-28 10:56] VITALS: BP 132/73
--- OUTSIDE RECORDS SUMMARY | 2021-07-28 11:00 | CCD ---
Author Author [facility] Organization [facility] Address Unknown Phone Unavailable Support Name Relationship Address Phone CHERRY Next Of Kin [address] [place] [address] ISAIAH Next Of Kin [address] [place] [address] LACEI COFFEY Next Of Kin [address] [place] [address] TERR[place] [address] CARMENBRANDON DUONG Next Of Kin [address] [place] [address] UE Next Of Kin Unknown Unavailable LASHONZAHEER VIERAEN Next Of Kin [address] [place] [address] Re-disclosure Warning The records that you are about to access may contain information from federally-assisted alcohol or drug abuse programs. If such information is present, then the following federally mandated warning applies: This information has been disclosed to you from records protected by federal confidentiality rules (42 CFR part 2). The federal rules prohibit you from making any further disclosure of this information unless further disclosure is expressly permitted by the written consent of the person to whom it pertains or as otherwise permitted by 42 CFR part 2. A general authorization for the release of medical or other information is NOT sufficient for this purpose. The Federal rules restrict any use of the information to criminally investigate or prosecute any alcohol or drug abuse patient.The records that you are about to access may contain highly sensitive health information, the redisclosure of which is protected by Article 27-F of the [facility] Public Health law. If you continue you may have access to information: Regarding HIV / AIDS; Provided by facilities licensed or operated by the [facility] Office of Mental Health; or Provided by the [facility] Office for People With Developmental Disabilities. If such information is present, then the following [facility] mandated warning applies: This information has been disclosed to you from confidential records which are protected by state law. State law prohibits you from making any further disclosure of this information without the specific written consent of the person to whom it pertains, or as otherwise permitted by law. Any unauthorized further disclosure in violation of state law may result in a fine or chcf sentence or both. A general authorization for the release of medical or other information is NOT sufficient authorization for further disc losure. Family History Family Member Name Family Member Gender Family Member Status Date o f Status Description Data Source(s) Unknown Unknown Problem [facility] ([facility]) Medications No Information Insurance Providers Payer name Policy type / Coverage type Policy ID Covered constitution party ID Covered constitution party's relationship to alexander Policy Alexander Plan Information [facility] [id number] SP [id number] [facility] [id number] SP [id number] [facility] [id number] SP [id number] SELF PAY ONLY UNAVAILABLE SP UNAV AILABLE [facility] O [id number] S [id number] [facility] Health Maintenance Organization (HMO) [id number] Self [employer] XIX -HMO [id number] 18 [id number] Problems, Conditions, and Diagnoses No Information Surgeries/Procedures No Information Results ID Date Data Source [id number] 02/18/2021 10:35:00 AM EDT [facility] Name Value Range Interpretation Code Description Data Rosa rce(s) Supporting Document(s) SARS coronavirus 2 RNA [Presence] in Res piratory specimen by MADALYN with probe detection NEGATIVE [facility] This lab was ordered by [facility] a nd reported by [facility]. Procedure Social History No Information
--- OUTSIDE RECORDS SUMMARY | 2021-07-28 13:27 | CCD ---
Author Author [facility] Organization [facility] Address Unknown Phone Unavailable Support Name Relationship Address Phone CHERRY Next Of Kin [address] [place] [address] ISAIAH Next Of Kin [address] [place] [address] LACIE COFFEY Next Of Kin [address] [place] [address] [place] [address] BRANDON MORALES Next Of Kin [address] [place] [address] UE Next Of Kin Unknown Unavailable DENILSONZAHEEREN Next Of Kin [address] [place] [address] Re-disclosure Warning The records that you are [...] is protected by Article 27-F of the [facility] Public Health law. If you continue you may have access to information: Regarding HIV / AIDS; Provided by facilities licensed or operated by the [facility] Office of Mental Health; or Provided by the [facility] Office for People With Developmental Disabilities. If such information is present, then the following [facility] mandated warning applies: This information has [...] law may result in a fine or penitentiary sentence or both. A general authorization for [...] type / Coverage type Policy ID Covered green party ID Covered green party's relationship to alexander Policy Alexander Plan Information [facility] COMMUNITY PLAN [facility] [id number] SP [id number] FOR[facility] COMMUNITY PLAN [facility] [id number] SP [id number] FOR[facility] COMMUNITY [facility]AN [facility] [id number] SP [id number] SELF PAY ONLY UNAVAILABLE SP UNAV AILABLE [facility] O [id number] S [id number] [facility]/Community [employer] Health Maintenance Organization (HMO) [id number] Self [facility] -O [id number] 18 [id number] Problems, Conditions, and Diagnoses No Information Surgeries/Procedures No Information Results ID Date Data Source [id number] 02/18/2021 10:35:00 AM EDT [facility] Name Value Range Interpretation Code Description Data Rosa rce(s) Supporting Document(s) SARS coronavirus 2 RNA [Presence] in Res piratory specimen by MADALYN with probe detection NEGATIVE [facility] This lab was ordered by [facility] a nd reported by [facility]. Procedure Social History No Information
== END 2021-07-28 13:20 | disposition left against medical advice (07) ==
LOC: M ED 10:56
DX: Z53.21 Procedure and treatment not carried out due to patient leaving prior to being seen by health care provider (principal)

== ENCOUNTER 2021-07-28 15:32 | Emergency (ER) | payer OTHER ==
[~2021-07-28] VITALS: Ht 160 cm; Wt 100.1 kg
[2021-07-28 15:32] VITALS: BP 137/76
--- OUTSIDE RECORDS SUMMARY | 2021-07-28 15:37 | CCD ---
Author Author [facility] Organization [facility] Address Unknown Phone Unavailable Support Name Relationship Address Phone CHERRY Next Of Kin [address] [place] [address] ISAIAH Next Of Kin [address] [place] [address] LACIE COFFEY Next Of Kin [address] [place] [address] [place] [address] BRANDON MORALES Next Of Kin [address] [place] [address] UE Next Of Kin Unknown Unavailable DENILSONAZHEEREN Next Of Kin [address] [place] [address] Re-disclosure Warning The records that you are [...] is protected by Article 27-F of the [facility] Public Health law. If you continue you may have access to information: Regarding HIV / AIDS; Provided by facilities licensed or operated by the [facility] Office of Mental Health; or Provided by the [facility] Office for People With Developmental Disabilities. If such information is present, then the following [facility] mandated warning applies: This information has [...] law may result in a fine or residential sentence or both. A general authorization for [...] type / Coverage type Policy ID Covered republican ID Covered republican's relationship to alexander Policy Alexander Plan Information [facility] [id number] SP [id number] [facility] [id number] SP [id number] [facility] COMM[facility] [id number] SP [id number] SELF PAY ONLY UNAVAILABLE SP UNAV AILABLE [facility] O [id number] S [id number] [facility]/Community [employer] Health Maintenance Organization (HMO) [id number] Self [facility] XIX -O [id number] 18 [id number] Problems, Conditions, and Diagnoses No Information Surgeries/Procedures No Information Results ID Date Data Source [id number] 02/18/2021 10:35:00 AM EDT [facility] Name Value Range Interpretation Code Description Data Rosa rce(s) Supporting Document(s) SARS coronavirus 2 RNA [Presence] in Res piratory specimen by MADALYN with probe detection NEGATIVE [facility] This lab was ordered by [facility] a nd reported by [facility]. Procedure Social History No Information
--- OUTSIDE RECORDS SUMMARY | 2021-07-28 19:04 | CCD ---
Author Author [facility] Organization [facility] Address Unknown Phone Unavailable Support Name Relationship Address Phone CHERRY Next Of Kin [address] [place] [address] ISAIAH Next Of Kin [address] [place] [address] LACIE COFFEY Next Of Kin [address] [place] [address] [place] [address] BRANDON MORALES Next Of Kin [address] [place] [address] UE Next Of Kin Unknown Unavailable DENILSONZAHEEREN Next Of Kin [address] [place] [address] Re-disclosure Warning The records that you are [...] is protected by Article 27-F of the [facility] Public Health law. If you continue you may have access to information: Regarding HIV / AIDS; Provided by facilities licensed or operated by the [facility] Office of Mental Health; or Provided by the [facility] Office for People With Developmental Disabilities. If such information is present, then the following [facility] mandated warning applies: This information has [...] law may result in a fine or care home sentence or both. A general authorization for [...] relationship to alexander Policy Alexander Plan Information [facility] COMM[facility]ITY PLAN [facility] [id number] SP [id number] [facility] [id number] SP [id number] [facility] [id number] SP [id number] SELF PAY ONLY UNAVAILABLE SP UNAV AILABLE [facility] O [id number] S [id number] [facility]/Community [employer] Health Maintenance Organization (HMO) [id number] Self [facility] X[facility] -O [id number] 18 [id number] Problems, Conditions, and Diagnoses No Information Surgeries/Procedures No Information Results ID Date Data Source [id number] 02/18/2021 10:35:00 AM EDT [facility] Name Value Range Interpretation Code Description Data Rosa rce(s) Supporting Document(s) SARS coronavirus 2 RNA [Presence] in Res piratory specimen by MADALYN with probe detection NEGATIVE [facility] This lab was ordered by [facility] a nd reported by [facility]. Procedure Social History No Information
== END 2021-07-28 19:01 | disposition left against medical advice (07) ==
LOC: M ED 15:32
DX: Z53.21 Procedure and treatment not carried out due to patient leaving prior to being seen by health care provider (principal)

== ENCOUNTER 2021-11-10 02:46 | Emergency (ER) | payer OTHER ==
[~2021-11-10] VITALS: Ht 160 cm; Wt 99.4 kg
[2021-11-10] MEDS ORDERED: LIDOCAINE 2% W/EPINEPHRINE 20ML VIAL **PRES FREE INFIL ONE (03:40)
[2021-11-10] MEDS ORDERED: MORPHINE 2 MG/ML 1ML VIAL (J2270) IV ONE ×2 (03:40→04:55)
[2021-11-10] MEDS ORDERED: BACITRACIN OINTMENT 30GM TUBE TOP ONE (03:40)
[2021-11-10] MEDS ORDERED: KETOROLAC 30 MG/ML 1ML VIAL IV ONE (04:00)
[2021-11-10] MEDS ORDERED: CEPH500C PO (06:02)
[2021-11-10] MEDS ORDERED: CEPHALEXIN 500 MG CAP PO ONE (06:05)
[2021-11-10 06:14] VITALS: BP 138/96
== END 2021-11-10 06:20 | disposition home or self-care (01) ==
LOC: M ED 02:46
DX: S41.112A Laceration without foreign body of left upper arm, initial encounter (principal); S51.812A Laceration without foreign body of left forearm, initial encounter; W19.XXXA Unspecified fall, initial encounter; Y92.009 Unspecified place in unspecified non-institutional (private) residence as the place of occurrence of the external cause; Y93.9 Activity, unspecified; Y99.9 Unspecified external cause status; Z88.2 Allergy status to sulfonamides
CPT/HCPCS: 12005; 73060; 73090; 96374; 96375; 99283; J1885; J2270

== ENCOUNTER 2021-11-17 22:03 | Emergency (ER) | payer OTHER ==
[~2021-11-17] VITALS: Ht 170.2 cm; Wt 99.7 kg
[~2021-11-17 22:03] MED LIST changes: +CEPH500C PO
[2021-11-17 22:06] VITALS: BP 166/86
== END 2021-11-17 22:13 | disposition left against medical advice (07) ==
LOC: M ED 22:03
DX: Z53.21 Procedure and treatment not carried out due to patient leaving prior to being seen by health care provider (principal)

== ENCOUNTER → 2022-11-30 | Outpatient (REF) | payer OTHER ==
[2022-11-30 18:55] LABS: ALBUMIN 3.9 G/DL (3.2-5.2); ALKALINE PHOSPHATASE 58 U/L (46-116); ALT/SGPT 52 U/L (7.0-40); AST/SGOT 27 U/L (<34); BILIRUBIN,TOTAL 0.7 MG/DL (0.3-1.2); BLOOD UREA NITROGEN 10 MG/DL (9-23); CALCIUM LEVEL 9.7 MG/DL (8.5-10.1); CARBON DIOXIDE LEVEL 27 MMOL/L (20-31); CHLORIDE LEVEL 105 MMOL/L (98-107); CHOLESTEROL LEVEL 194 MG/DL (<200); CHOLESTEROL RISK RATIO 3.63 (<5); CREATININE FOR GFR 0.88 MG/DL (0.55-1.30); GLOMERULAR FILTRATION RATE > 60.0 (>60); GLUCOSE, FASTING 96 MG/DL (60-100); HDL CHOLESTEROL 53.3 MG/DL (>40); LDL CHOLESTEROL 115.9 MG/DL (<100); NON-HDL-C 141 MG/DL; POTASSIUM SERUM 4.5 MMOL/L (3.5-5.1); SODIUM LEVEL 138 MMOL/L (136-145); TOTAL PROTEIN 7.1 G/DL (5.7-8.2); TRIGLYCERIDES LEVEL 124 MG/DL (<150)
[2022-11-30 18:56] LABS: TOTAL 25(OH) VITAMIN D 37.7 NG/ML (20.0-100.0)
[2022-11-30 18:57] LABS: THYROID STIMULATING HORMONE 1.013 uIU/ML (0.55-4.78)
[2022-11-30 19:03] LABS: BASO # 0.1 10^3/uL (0.0-0.2); BASO % 0.6 % (0.0-1.0); EOS # 0.1 10^3/uL (0.0-0.5); EOS % 1.4 % (0.0-3.0); HEMATOCRIT 48.8 % (36.0-47.0); HEMOGLOBIN 16.2 g/dl (12.0-15.5); LYMPH # 1.7 10^3/uL (1.5-5.0); LYMPH % 16.8 % (24.0-44.0); MEAN CORPUSCULAR HEMOGLOBIN 32.6 pg (27.0-33.0); MEAN CORPUSCULAR HGB CONC 33.2 g/dl (32.0-36.5); MEAN CORPUSCULAR VOLUME 98.2 fl (80.0-96.0); MONO # 0.5 10^3/uL (0.0-0.8); MONO % 5.4 % (2.0-8.0); NEUTROPHILS # 7.6 10^3/uL (1.5-8.5); NEUTROPHILS % 75.4 % (36.0-66.0); PLATELET COUNT, AUTOMATED 387 10^3/uL (150-450); RED BLOOD COUNT 4.97 10^6/uL (4.00-5.40); WHITE BLOOD COUNT 10.1 10^3/uL (4.0-10.0)
== END ==
LOC: M LAB REF 16:16
PROVIDERS: ATTEND Nurse Practitioner Family
DX: E55.9 Vitamin D deficiency, unspecified (principal); Z68.38 Body mass index [BMI] 38.0-38.9, adult

== ENCOUNTER 2024-08-08 08:50 | Day surgery (SDC) | payer OTHER ==
[~2024-08-08] VITALS: Ht 162.6 cm; Wt 99.2 kg
[2024-08-08] MEDS ORDERED: propofoL 200 MG/20 ML VIAL As Ordered ONE (09:29)
[2024-08-08] MEDS ORDERED: LIDOCAINE 2% 100MG/5ML SDV (FOR ANES.) As Ordered ONE (09:29)
[2024-08-08] MEDS ORDERED: ONDANSETRON 4MG 2ML VIAL As Ordered ONE (09:29)
[2024-08-08] MEDS ORDERED: MIDAZOLAM INJ 2MG/2ML VIAL As Ordered ONE (09:30)
[2024-08-08] MEDS ORDERED: fentaNYL 100 MCG/2 ML INJECTION As Ordered ONE (09:30)
[2024-08-08] MEDS ORDERED: ePHEDrine SULFATE 25 MG/5 ML(5MG/ML) SYRINGE As Ordered ONE (10:25)
[2024-08-08] MEDS ORDERED: PHENYLephrine 500MCG 5ML (100MCG/ML) SYRINGE As Ordered ONE (10:25)
[2024-08-08] MEDS: CIPRODEX OTIC SUSP 7.5ML As Ordered ONE (10:30)
[2024-08-08] MEDS ORDERED: ACETAMINOPHEN 1000MG 100ML IV BAG As Ordered ONE (10:32)
[2024-08-08] MEDS ORDERED: OXYMETAZOLINE 0.05% NASAL SPRAY (AFRIN) As Ordered ONE (10:36)
[2024-08-08] MEDS ORDERED: KETOROLAC 60MG 2ML VIAL As Ordered ONE (10:38)
[2024-08-08] MEDS ORDERED: MEPERIDINE 25 MG/ML 1ML VIAL IV PRN (10:45)
[2024-08-08] MEDS ORDERED: METOCLOPRAMIDE INJ 10MG/2ML VIAL IV PRN (10:45)
[2024-08-08] MEDS ORDERED: fentaNYL 100 MCG/2 ML INJECTION IV PRN (10:45)
[2024-08-08] MEDS ORDERED: ONDANSETRON 4MG 2ML VIAL IV PRN (10:45)
[2024-08-08] MEDS ORDERED: diphenhydrAMINE 50MG/ML VIAL IV PRN (10:45)
[2024-08-08] MEDS ORDERED: oxyCODONE 5MG TAB PO PRN (10:45)
[2024-08-08] MEDS ORDERED: HYDROMORPHONE HCL 0.5 MG/ 0.5 ML SYRINGE IV PRN (10:45)
[2024-08-08 11:49] VITALS: BP 115/61; TEMP 97.6; O2SAT 100
== END 2024-08-08 12:07 | disposition home or self-care (01) ==
LOC: M SDC 08:50
PROVIDERS: ATTEND Otolaryngology
DX: H65.23 Chronic serous otitis media, bilateral (principal); H90.0 Conductive hearing loss, bilateral; F17.218 Nicotine dependence, cigarettes, with other nicotine-induced disorders; Z88.2 Allergy status to sulfonamides
CPT/HCPCS: 69436; 81025; J0131; J1100; J1885; J2250; J2371; J2405; J3010

== ENCOUNTER → 2024-12-25 | Outpatient (REF) | payer OTHER ==
[2024-12-25 15:48] LABS: APPEARANCE, URINE CLEAR (CLEAR); BACTERIA, URINE AUTO 1+ (NEGATIVE); BILIRUBIN, URINE AUTO NEGATIVE (NEGATIVE); BLOOD, URINE BLOOD 3+ (NEGATIVE); COLOR, URINE AMBER (YELLOW); GLUCOSE, URINE (UA) AUTO NEGATIVE (NEGATIVE); KETONE, URINE AUTO NEGATIVE (NEGATIVE); LEUKOCYTE ESTERASE, URINE AUTO 3+ (NEGATIVE); MUCUS, URINE SMALL (NEGATIVE); NITRITE, URINE AUTO NEGATIVE (NEGATIVE); PROTEIN, URINE AUTO NEGATIVE (NEGATIVE); RBC, URINE AUTO 6 /HPF (0-3); SPECIFIC GRAVITY URINE AUTO 1.008 (1.002-1.035); SQUAMOUS EPITHELIAL CELL UR AU 1 /HPF (0-6); UROBILINOGEN, URINE AUTO 0.2 mg/dL (0.0-2.0); WBC, URINE AUTO 36 /HPF (0-3)
[2024-12-25 17:06] LABS: Trichomonas vaginalis (AMP) NOT DETECTED (NEGATIVE)
[2024-12-25 17:30] LABS: GC DNA AMPLIFICATION NEGATIVE (NEGATIVE)
== END ==
LOC: M LAB REF 15:25
PROVIDERS: ATTEND Physician Assistant Medical
DX: N39.0 Urinary tract infection, site not specified (principal)

== ENCOUNTER → 2025-08-29 | Outpatient (REF) | payer OTHER, MEDICAID | LOC: M LAB REF 16:11 | PROVIDERS: ATTEND Physician Assistant | DX: J02.9 Acute pharyngitis, unspecified (principal) ==